=== PATIENT | male | born 1950 | race Caucasian/White ===

== ENCOUNTER 2019-04-03 19:41 | Emergency (ER) | payer MEDICARE, BC ==
[2019-04-03 20:05] VITALS: BP 123/80
[2019-04-03] MEDS ORDERED: Amoxicillin/Clavulanate TAB* 875 MG PO ONE (20:36)
[2019-04-03] MEDS ORDERED: Mupirocin 2% OINT* TUBE TOPICAL ONE (20:37)
--- NOTE | 2019-04-03 20:38 | UC ---
Skin Complaint HPI - HPI Summary HPI Summary: 69 yo male with painful pustules in his right arm pit x days Initially started with two no fever some draining no Hx of MRSA - History of Current Complaint Chief Complaint: UCSkin Time Seen by Provider: 04/03/19 20:24 Stated Complaint: RASH UNDER RIGHT ARM Hx Obtained From: Patient Onset/Duration: Gradual Onset, Lasting Weeks Timing: Constant Onset Severity: Mild Current Severity: Moderate Pain Intensity: 4 Pain Scale Used: 0-10 Numeric Location: Discrete, Other - right axillia Character: Pruritus, Pain, Raised Aggravating Factor(s): Nothing Alleviating Factor(s): Nothing Associated Signs & Symptoms: Positive: Drainage, Tenderness - Allergy/Home Medications Allergies/Adverse Reactions: Allergies Allergy/AdvReac Type Severity Reaction Status Date / Time doxycycline Allergy Rash Verified 04/03/19 20:05 Home Medications: Home Medications Aspirin 81 mg CHEW TAB* [Aspirin Low Dose TAB*] 81 mg PO DAILY 04/03/19 [ History Confirmed 04/03/19] Atorvastatin* [Lipitor 10 MG*] 10 mg PO DAILY 04/03/19 [History Confirmed ] Tadalafil [Cialis] 5 mg PO DAILY 04/03/19 [History Confirmed 04/03/19] busPIRone TAB* [Buspar TAB*] 2.5 mg PO BID 04/03/19 [History Confirmed 04/03/19] PMH/Surg Hx/FS Hx/Imm Hx Previously Healthy: Yes Cardiovascular History: Cardiac Disease, Hypertension - Surgical History Surgical History: Yes Surgery Procedure, Year, and Place: quad bypass - Social History Alcohol Use: Occasionally Substance Use Type: None Smoking Status (MU): Current Every Day Smoker Type: Cigarettes Amount Used/How Often: 1 ppd Length of Time of Smoking/Using Tobacco: 50 Have You Smoked in the Last Year: Yes Review of Systems All Other Systems Reviewed And Are Negative: Yes Constitutional: Positive: Negative Skin: Positive: Negative Eyes: Positive: Negative ENT: Positive: Negative Respiratory: Positive: Negative Cardiovascular: Positive: Negative Gastrointestinal: Positive: Negative Genitourinary: Positive: Negative Motor: Positive: Negative Neurovascular: Positive: Negative Musculoskeletal: Positive: Negative Neurological: Positive: Negative Psychological: Positive: Negative Physical Exam Triage Information Reviewed: Yes Appearance: Well-Appearing, No Pain Distress, Well-Nourished Vital Signs: Initial Vital Signs Temp 98.5 F 06/28/19 19:55 Pulse 68 04/03/19 19:55 Resp 18 04/03/19 19:55 BP 123/80 04/03/19 19:55 Pulse Ox 97 04/03/19 19:55 Vital Signs Reviewed: Yes Eyes: Positive: Conjunctiva Clear ENT: Positive: Hearing grossly normal. Negative: Nasal congestion, Nasal drainage, Trismus, Muffled voice Neck: Positive: Supple, Nontender, No Lymphadenopathy Respiratory: Positive: Lungs clear, Normal breath sounds, No respiratory distress, No accessory muscle use Cardiovascular: Positive: RRR, No Murmur Musculoskeletal: Positive: ROM Intact, No Edema Neurological: Positive: Alert Skin Exam: Other - multiple pustules right axilla Course/Dx - Diagnoses Provider Diagnosis: Pustules determined by examination Discharge - Sign-Out/Discharge Documenting (check all that apply): Patient Departure All imaging exams completed and their final reports reviewed: No Studies - Discharge Plan Condition: Stable Disposition: HOME Prescriptions: Amoxicillin/Clavulanate TAB* [Augmentin TAB 875*] 875 mg PO BID #14 tab Referrals: Abdi Galvan MD [Primary Care Provider] - 3 Days Additional Instructions: warm compresses a culture is pending recheck for worsening symptoms or if not markedly improved in 2-3 days You have multiple pustules in your arm pit - Billing Disposition and Condition Condition: STABLE Disposition: Home
--- NOTE | 2019-04-04 16:01 | UC ---
- Progress Note Progress Note: please notify pt stop augmentin start bactrim DS one twice daily Course/Dx - Diagnoses Provider Diagnoses: Pustules determined by examination Discharge - Sign-Out/Discharge Documenting (check all that apply): Post-Discharge Follow Up All imaging exams completed and their final reports reviewed: No Studies - Discharge Plan Condition: Stable Disposition: HOME Prescriptions: Amoxicillin/Clavulanate TAB* [Augmentin TAB 875*] 875 mg PO BID #14 tab Referrals: Abdi Galvan MD [Primary Care Provider] - 3 Days Additional Instructions: warm compresses a culture is pending recheck for worsening symptoms or if not markedly improved in 2-3 days You have multiple pustules in your arm pit - Billing Disposition and Condition Condition: STABLE Disposition: Home
== END 2019-04-03 20:59 | disposition home or self-care (01) ==
LOC: UCCORT 19:41
DX: L08.9 Local infection of the skin and subcutaneous tissue, unspecified (principal); Z88.1 Allergy status to other antibiotic agents; I10 Essential (primary) hypertension; Z95.1 Presence of aortocoronary bypass graft; F17.210 Nicotine dependence, cigarettes, uncomplicated
CPT/HCPCS: 87070; 87077; 87186; 87205; 87640; 87641; 99202; A9270-GY; G0463